=== PATIENT | female | born 2000 | race Caucasian/White ===

== ENCOUNTER 2021-11-12 16:22 | Emergency (ER) | payer MEDICAID ==
[~2021-11-12] VITALS: Ht 160 cm; Wt 60.0 kg
[2021-11-12 17:32] VITALS: BP 105/45
[2021-11-12] MEDS ORDERED: POLY10DR LEFTEYE (18:58)
== END 2021-11-12 19:25 | disposition home or self-care (01) ==
LOC: ER 16:22
DX: H10.32 Unspecified acute conjunctivitis, left eye (principal)
CPT/HCPCS: 99283

== ENCOUNTER 2022-12-08 11:38 | Emergency (ER) | payer MEDICAID, OTHER ==
[~2022-12-08] VITALS: Ht 157.5 cm; Wt 61.0 kg
[~2022-12-08 11:38] MED LIST: POLY10DR LEFTEYE
[2022-12-08 11:43] VITALS: BP 104/71
== END 2022-12-08 17:09 | disposition left against medical advice (07) ==
LOC: ER 11:38
DX: Z53.21 Procedure and treatment not carried out due to patient leaving prior to being seen by health care provider (principal)